=== PATIENT | female | born 1995 | race Two or more races ===

== ENCOUNTER 2023-03-03 06:29 | Observation (INO) | payer MEDICAID, OTHER ==
[~2023-03-03] VITALS: Ht 157.5 cm; Wt 77.1 kg
[2023-03-03] MEDS ORDERED: ONDANSETRON HCL 4 MG/2 ML VIAL IM ONE (07:15)
[2023-03-03] MEDS ORDERED: LACTATED RINGER'S 1,000 ML IV SCH (07:15)
[2023-03-03] MEDS ORDERED: PREN-96 PO (08:12)
== END 2023-03-03 08:44 | disposition home or self-care (01) ==
LOC: LDRP 06:29 → UNDOADMOB 06:29 → LDRP 06:49 → UNDODISOB 08:44
PROVIDERS: ADMIT Obstetrics & Gynecology; ATTEND Obstetrics & Gynecology
DX: O21.2 Late vomiting of pregnancy (principal); O26.892 Other specified pregnancy related conditions, second trimester; R19.7 Diarrhea, unspecified; Z3A.26 26 weeks gestation of pregnancy
CPT/HCPCS: 59025; 81002; 96360; 96361; 96372; G0378; J2405; 96374